=== PATIENT | female | born 1990 | race Caucasian/White ===

== ENCOUNTER 2021-05-06 01:57 | Emergency (ER) | payer OTHER ==
[~2021-05-06] VITALS: Ht 162.6 cm; Wt 128.4 kg
--- NOTE | 2021-05-06 16:55 | EKG ---
[facility] [address] [place], [place] [address] Signed Sinus tachycardia Cannot rule out Anterior infarct , age undetermined Abnormal ECG No previous ECGs available Confirmed by YESSI KESSLER MD ([id number]) on 05/06/2021 4:55:43 PM Electronically Signed By: YESSI KESSLER MD 05/06/21 1655 PATIENT NAME: PAOLA GARCIA Electrocardiogram DATE OF : 89 PHYSICIAN: YESSI KESSLER MD REPORT #: [id number] REPORT IS CONFIDENTIAL AND NOT TO BE RELEASED WITHOUT AUTHORIZATION
== END 2021-05-06 04:45 | disposition home or self-care (01) ==
LOC: ED 01:57
DX: R07.89 Other chest pain (principal); D72.829 Elevated white blood cell count, unspecified; G43.909 Migraine, unspecified, not intractable, without status migrainosus
CPT/HCPCS: 71260; 80053; 84484; 85025; 93005; 93010; 99285-25; Q9967